=== PATIENT | female | born 1985 | race Caucasian/White ===

== ENCOUNTER 2019-05-01 05:30 | Day surgery (SDC) | payer OTHER ==
[~2019-05-01 05:30] MED LIST: ALLEGRA ALLERG180 MG PO; FLONASE16 GM {1, null}
== END 2019-05-01 15:50 | disposition home or self-care (01) ==
LOC: CIR.AMB 05:30
DX: K43.6 Other and unspecified ventral hernia with obstruction, without gangrene (principal)